=== PATIENT | female | born 1990 | race Caucasian/White ===

== ENCOUNTER 2025-09-13 10:00 | Observation (INO) | payer OTHER, SELFPAY ==
[2025-09-13 10:02] VITALS: BMI 35.5
[2025-09-13 10:19] VITALS: BP 156/90; PULSE 86; RESP 18; TEMP 37.2; O2SAT 100
--- NOTE | 2025-09-13 10:26 | XR_ITS ---
EXAMINATION: PA chest single view TECHNIQUE: Upright PA chest single view Date and time: September 13, 2025, 10:37 a.m., comparison April 24, 2024. INDICATIONS: Cardiac palpitations this morning. FINDINGS: Normal heart size The lungs are clear. The osseous structures are intact. IMPRESSION: No active disease
--- NOTE | 2025-09-13 10:26 | EKG_ITS ---
[facility] Test Date: 2025-09-13 Pat Name: SHERITA HESS Department: Room: - Gender: Female [employer] Author: : 1990 Requested By: Tanesha Welch Order Number: [id number] Reading MD: Tanesha Welch Measurements Intervals [place] Rate: 74 P: 23 IA: 128 QRS: 65 QRSD: 75 T: 30 QT: 355 QTc: 395 Interpretive Statements SINUS RHYTHM WITH OCCASIONAL SUPRAVENTRICULAR PREMATURE COMPLEXES MINIMAL ST DEPRESSION [0.025+ mV ST DEPRESSION] Compared to ECG 04/19/2024 17:22:36 ST (T wave) deviation now present Sinus tachycardia no longer present T-wave abnormality no longer present /store/S0/[id number].pdf
--- NOTE | 2025-09-13 10:29 | PD.EDRME ---
Rapid Medical Screening Exam E Arrival date/time: 09/13/25 10:00 This is a 35-year-old female that comes into the emergency room with complaints of palpitations. Patient reports that she has a history of myasthenia gravis. Patient states that she noticed after she took the PYRIDOSTIGMINE she starts to have palpitations. Patient states she has been on this medication for over 5 years. I have greeted and performed a focused initial assessment of this patient. Initial appropriate labs ordered at this time. A comprehensive ED assessment and evaluation of the patient and analysis of all test and completion of medical decision making process will be conducted by additional ED provider. Chief Complaint: Arrhythmia/Palpitations Time Seen by Provider: 09/13/25 10:09 Vital signs: Vital Signs Temperature 98.9 F 09/13/25 10:19 Pulse Rate 86 09/13/25 10:19 Respiratory Rate 18 09/13/25 10:19 Blood Pressure 156/90 H 09/13/25 10:19 Pulse Oximetry (%) 100 09/13/25 10:19 Oxygen Delivery Method Room Air 09/13/25 10:19 Exam: Alert and oriented, breathing even and unlabored Clinical Impression: Palpitations
[2025-09-13 11:02] LABS: Basophils # (Auto) 0.0 Thou/mm3 (0.0-0.2); Basophils % (Auto) 1 % (0-2.5); Eosinophils # (Auto) 0.1 Thou/mm3 (0.0-0.5); Eosinophils % (Auto) 2 % (0-10); Hematocrit 41.9 % (36.0-46.0); Hemoglobin 13.7 g/dL (12.0-16.0); Immature Granulocytes Auto 0.01 Thou/mm3 (0.00-0.00); Lymphocytes # (Auto) 0.8 Thou/mm3 (1.0-4.8); Lymphocytes % (Auto) 17 % (10-50); Mean Corpuscular HGB Conc 32.7 g/dl (31.0-37.0); Mean Corpuscular Hemoglobin 27.7 pg (25.0-35.0); Mean Corpuscular Volume 85 fL (80-100); Monocytes # (Auto) 0.3 Thou/mm3 (0.0-0.8); Monocytes % (Auto) 7 % (0-12); Neutrophils # (Auto) 3.7 Thou/mm3 (1.8-7.7); Neutrophils % (Auto) 74 % (37-80); Nucleated Red Blood Cell # 0.00 Thou/mm3 (0.00-0.00); Nucleated Red Blood Cell % 0 /100 WBC (0); Platelet Count 285 Thou/mm3 (140-440); RDW Standard Deviation 39.5 fL (36.4-46.3); Red Blood Count 4.95 Miln/mm3 (4.00-5.20); White Blood Count 5.0 Thou/mm3 (3.6-11.0)
[2025-09-13 11:36] LABS: B-Type Natriuretic Peptide 44 pg/mL (0-100)
[2025-09-13 11:37] LABS: Alanine Aminotransferase 18 U/L (10-49); Albumin, Serum 4.8 gm/dL (3.5-5.0); Albumin/Globulin Ratio 2.2 (1.2-2.2); Alkaline Phosphatase 83 U/L (46-116); Anion Gap 8 (7-16); Aspartate Amino Transferase 15 U/L (0-34); BUN/Creatinine Ratio 9 Ratio (12-20); Bilirubin,Total 0.3 mg/dL (0.3-1.2); Blood Urea Nitrogen 7 mg/dL (9-23); Calcium 9.4 mg/dL (8.3-10.6); Calcium (Corrected) 9.4 mg/dL (8.5-10.1); Carbon Dioxide 25.6 mMol/L (20.0-31.0); Chloride 109 mMol/L (98-107); Creatinine (Component) 0.8 mg/dL (0.6-1.3); Estimated Creatinine Clearance 117.0 mL/min (>60); Globulin 2.2 gm/dL (2.3-3.5); Glucose 119 mg/dL (74-106); Osmolality,Calculated 283 (275-295); Potassium 3.8 mMol/L (3.4-5.1); Sodium 143 mMol/L (136-145); Total Protein 7.0 gm/dL (5.7-8.2); Troponin I < 0.002 ng/mL (0.0-0.045); eGFR > 60 See Note
[2025-09-13 12:03] LABS: Collection Type, Urine Voided
[2025-09-13 12:27] LABS: Bilirubin,Urine Negative (Negative); Blood,Urine Negative (Negative); Clarity,Urine Clear (Clear/Hazy); Color,Urine Colorless (Lt Yel-Yel); Culture Indicated,Urine Not Indicated; Glucose, Urine Negative (Negative); Ketones,Urine Negative (Negative); Leukocyte Esterase,Urine Negative (Negative); Nitrite,Urine Negative (Negative); PH,Urine 7.0 (5.0-7.0); Protein,Urine Negative (Neg - Trace); RBC,Urine 1 /hpf (0-3); Specific Gravity,Urine 1.007 (1.001-1.035); Squamous Epithelial Cell,Urine 1 /hpf (0-5); Urobilinogen,Urine Negative mg/dL (0.0-1.0); WBC,Urine < 1 /hpf (0-5)
[2025-09-13 12:51] LABS: HCG Qualitative,Urine Negative
--- NOTE | 2025-09-13 15:00 | EDNOTE_ITS ---
ED Arrhythmia Palp. RME/HPI General Chief Complaint: Arrhythmia/Palpitations Stated Complaint: LIGHTHEADED, BLURRY VISION, SHAKY, PALPITATIONS Time Seen by Provider: 09/13/25 10:09 Arrival date/time: 09/13/25 10:00 RME / HPI RME / HPI narrative: 09/13/25 10:00 This is a 35-year-old female that comes into the emergency room with complaints of palpitations. Patient reports that she has a history of myasthenia gravis. Patient states that she noticed after she took the PYRIDOSTIGMINE she starts to have palpitations. Patient states she has been on this medication for over [address] COUGHLIN MAIN ED EVALUATION: 35-year-old female with a past medical history of myasthenia gravis presents to the Emergency Department accompanied by her for evaluation of recurrent episodes of dizziness, palpitations, abdominal cramping, and waves of hot sensations that began yesterday and recurred this morning. The patient reports she has the autoimmune condition of myasthenia gravis and takes azathioprine 50 mg 3x daily. Yesterday, about 30 minutes after taking her medication, she developed abdominal cramping, dizziness, palpitations, and sensations of heat spreading throughout her body. She states her heart rate was 150-160 yesterday and her blood pressure was also elevated; her vitals were checked by a nurse here at the hospital yesterday, the patient is a current worker. She did not seek medical attention yesterday but returned today after experiencing another similar episode 30 minutes after her morning dose. Each episode lasts approximately 1?2 hours, occurs in waves, and is associated with a feeling of lightheadedness or impending fainting. She denies numbness, tingling, or weakness. No vomiting. No chest pain. Follows with PCP Dr. Saez and neurologist Dr. Delatorre. Related Data Previous Rx's ?Medication ?Instructions ?Recorded azathioprine 50 mg tablet 50 mg PO BID #30 tabs Allergies Allergy/AdvReac Type Severity Reaction Status Date / Time ciprofloxacin Allergy Severe Swelling Verified 09/13/25 10:05 of Lip/Tongue/Throat Review of Systems Review of Systems Systems Reviewed: All systems reviewed, normal except as documented Past Medical History Past Medical History REPRODUCTIVE: Positive Previous Pregnancies ( X2) ENDOCRINE: Positive Endocrine Disorders and Hypothyroidism PSYCHO/SOCIAL: Positive Depression (TOOK MEDS PRIOR TO THIS ) OTHER HISTORY: Positive Hospitalization ( X2) Family History FAMILY HISTORY: Positive Family Cardiac Disorders (MATERNAL GRANDPARENTS) Social History SMOKING STATUS: Never smoker ED Exam Narrative Physical exam: GENERAL APPEARANCE: alert and oriented x 4, well-developed, well-nourished, no acute distress, appears anxious VITALS: All vitals were reviewed and the pulse ox is 100% on room air, which is normal according to my interpretation. HEENT: Normocephalic, atraumatic; pupils equal, round, reactive to light; EOMI; mucous membranes pink, moist; oropharynx clear NECK: Supple LUNGS: CTABL; no wheezes, no rales, no rhonchi HEART: Regular rate, regular rhythm; normal S1, S2; no murmurs ABDOMEN: non distended; normal BS; soft, no tenderness, no guarding, no rebound; no masses, no organomegaly, no hernia BACK: no CVA tenderness EXTREMITIES: atraumatic; no edema NEUROLOGIC: awake; alert and oriented x4; cranial nerves II-XII grossly intact; no focal sensory or motor deficits PSYCHIATRIC: Appears anxious, cooperative, appropriate mood and affect SKIN: warm, dry, normal color; no rashes Course Quality Measures none Orders Category Date Time Status EKG (ED ONLY) *Do not use* NOW Care 09/13/25 10:26 Completed EKG (ED Only) Stat Exams 09/13/25 10:26 Draft XR chest 1V Stat Exams 09/13/25 10:26 Completed BNP [B-Type Natriuretic Peptide] Stat Lab 09/13/25 10:51 Completed CBC Stat Lab 09/13/25 10:51 Completed Comprehensive Metabolic Panel Stat Lab 09/13/25 10:51 Completed HCG Qualitative,Urine Stat Lab 09/13/25 11:19 Completed Troponin I Stat Lab 09/13/25 10:51 Completed Urinalysis, C/S if Indicated Stat Lab 09/13/25 11:19 Completed Vital Signs Vital signs: Vital Signs Temperature 98.9 F 09/13/25 10:19 Pulse Rate 86 09/13/25 10:19 Respiratory Rate 18 09/13/25 10:19 Blood Pressure 156/90 H 09/13/25 10:19 Pulse Oximetry (%) 100 09/13/25 10:19 Oxygen Delivery Method Room Air 09/13/25 10:19 Arrhythmia/Palpitations MDM Narrative MDM Narrative:: I, Fiordaliza Florentin, am scribing for and in the presence of Dr. Coughlin. Patient data External records reviewed:: [facility] [place] previous records Clinical information provided by:: patient and spouse Social determinants that could affect healthcare access:: none Patient has the following chronic illnesses:: Myasthenia gravis and takes azathioprine 50 mg 3x daily followed by neurologist Dr. Delatorre. Follows with PCP Dr. Saez. How is presenting disease/condition affected by chronic disease/condition?: exacerbated by Evaluation data The following diagnostics were reviewed and interpreted by me:: lab results, radiology exam(s) and EKG tracing(s) (My interpretation: EKG performed at 1029 hours, sinus rhythm, rate 74, T wave inversion in V1, slight ST depression in lead 3) Lab and/or radiology exams considered but not ordered:: none Interpretation Summary: Procedure(s): XR chest 1V Accession Number(s): [id number] cc: Cecilio Farias MD; Tanesha Welch NP~ EXAMINATION: PA chest single view TECHNIQUE: Upright PA chest single view Date and time: September 13, 2025, 10:37 a.m., comparison April 24, 2024. INDICATIONS: Cardiac palpitations this morning. FINDINGS: Normal heart size The lungs are clear. The osseous structures are intact. IMPRESSION: No active disease Dictated By: Cecilio Farias MD Medications / Prescriptions Medications or Prescriptions considered but not ordered:: none Medication administrations:: see above if any Consultations Consultation(s) initiated? (list below): Yes Consultation #1 (Physician, Specialty, Details): Discussed test HPI, PMHx, lab, radiology results and/or management with Dr. Delatorre. Wants the patient admitted and will consult an admission to the hospitalist. Time: 15:08 Consultation #2 (Physician, Specialty, Details): Discussed test HPI, PMHx, lab, radiology results and/or management with resident working with the hospitalist. Will admit for further evaluation and management. Accepts patient for admission. Time: 15:36 Diagnosis Differential diagnosis arrhythmia/palpitations: palpitations, anxiety, supraventricular tachycardia and other (adverse reaction to azathioprine, autonomic dysregulation related to myasthenia gravis) Most likely diagnosis given after review of the tests above:: Palpitations Admission Indicated Admission indicated?: not indicated Admission Request Was there a request for admission?: Yes Admission Attestation Admission request attestation: Discussed case with [] from Hospitalist service regarding admission. Discussed patients ED course, exam findings, labs, and radiology results. The Hospitalist [agrees,declines] to accept the patient for admission. Disposition Plan Disposition Plan: Admit Discharge Plan Plan Patient Disposition: Admit Acute Care w/in Hospital Prescriptions/Referrals Prescriptions/Med Rec: No Action azathioprine 50 mg tablet 50 mg PO BID Qty: 30 0RF Rx Instructions: From 05/08/2024 patient will start azathioprine 50 mg 2 times a day daily Referrals: Mora Saez MD [Primary Care Provider, Family Practice] - In 1 week Problem List Clinical Impression: Palpitations Patient/Caregiver Discharge Instructions Print Language: Uzbek Stand Alone Forms: [facility] Award Info., Patient Portal Info Letter
[2025-09-13 15:29] VITALS: BP 156/87; PULSE 78; PULSE 79; RESP 16; TEMP 36.9; O2SAT 99
[2025-09-13 17:11] VITALS: BP 142/83; PULSE 86; RESP 20; TEMP 36.8; O2SAT 99
--- NOTE | 2025-09-13 17:48 | ESHP_ITS ---
<Statement entered by Leslie Teixeira MD - 09/14/25 11:44> Patient was seen and examined by me personally. I have directly supervised and reviewed documentation by the team resident and agree with its findings with any exceptions or additional findings as below. Plan of care was discussed with the attending, Dr. Hunt. Patient is a 35-year-old female with history of myasthenia gravis who presented to the ED on 09/13/2025 due to an episode of palpitations, diaphoresis, dizziness, and presyncopal symptoms about 30 minutes after taking her pyridostigmine dose this morning. Patient states that it self resolved before coming to the hospital however she had a similar reaction yesterday also after taking her medication, thus prompting concern for the repeat episode. Patient states the medication is not new and she has been taking it for 5 years now. Patient denies any caffeine intake today or yesterday morning. She does report a history of anxiety and panic attacks, and endorses that there could possibly be a component of the anxiety contributing. She noted that her heart rate was fast yesterday however when checking her health isauro on her phone did not see a record of tachycardia. On ED workup, vitals have been stable and EKG showed normal sinus rhythm. Labs showed a normal CMP, CBC, troponin, and BNP. Dr. Delatorre was consulted by the ED and requests patient to be admitted for observation and telemonitoring. Patient's home pyridostigmine will be resumed at half the regular dose. Anticipate discharge in 24 hours if remains stable. Leslie Teixeira, PGY-3 Documentation for date of: 09/13/25 HPI History of Present Illness History of present illness: Nga Duran is a 35-year-old female with a PMH of myasthenia gravis on pyridostigmine for 4-5 years and new-onset hypertension for the past 6 months who presents today with a chief complaint of recurrent episodes of palpitations. She reports that yesterday she felt dizzy and tachycardic after taking her usual dose of pyridostigmine and that this was accompanied by blurry vision and a feeling of heat that washed over her body that made her feel like she was going to faint. She endorses similar episodes of this in the past (minus the blurry vision) as well as recurrent episodes of palpitations that occur at night which awaken her and keep her from sleeping. Patient states that her concern regarding her paroxysmal stints of palpitations was mainly centered around fear that something life-threatening was about to befall her rather than any symptomatic discomfort associated with the episode itself. She endorses history of anxiety and expresses that she wants to get a handle on whatever these current symptoms are so that nothing catastrophic befalls her. At the time of interview, patient denied any ongoing symptoms for which she chose to seek care in the ED as they had self-resolved. Of note, patient did report that she had apparently been hospitalized about a month ago for a myasthenic crisis for which she was given IVIG. PMH: As above PSH: None Medications: PO pyridostigmine bromide 120 mg every 6 hours Allergies: Ciprofloxacin, and IV magnesium sulfate (causes respiratory failure) FH: History of rheumatoid arthritis and congestive heart failure in mother SH: No significant history of alcohol use, smoking, or recreational drug use In the ED, vitals showed: BP 156/90 HR 86 RR 18 Temp 98.9 SpO2 100% on room air CBC was WNL. CMP was WNL. UA was bland. Imagin/1 CXR was unremarkable. 09/13 EKG showed sinus rhythm of heart rate 74 with occasional supraventricular premature complexes and minimal ST depression. In the ED, patient was started on PO pyridostigmine bromide 30 mg every 6 hours. Patient was admitted to Observation for the work-up and management of recurrent and unexplained episodes of palpitations. Neurology (Dr. Delatorre) was consulted and is closely following the case. Review of Systems Review of Systems Systems Reviewed: All systems reviewed, normal except as documented Exam Vital Signs Temp Pulse Resp BP Pulse Ox O2 Del Method 98.2 F 86 20 142/83 H 99 Room Air 09/13/25 17:11 09/13/25 17:11 09/13/25 17:11 09/13/25 17:11 09/13/25 17:11 09/13/25 17:11 Narrative Exam General: A/O x3, no acute distress. Skin: Warm, dry, intact, no obvious rash. Head: Normocephalic, atraumatic. Eyes: PERRL, EOMI. Anicteric, vision grossly intact. Ears: No ear pain, no ear discharge, Hearing grossly intact. Nose: No nasal discharge. Mouth/Throat: Oral mucosa moist. No obvious lesions in oropharynx. Neck: Neck supple, non-tender, no cervical lymphadenopathy. Cardiovascular: Slightly tachycardic rate but normal rhythm, no murmur, no JVD or carotid bruits. +S1/S2. Respiratory: Bilateral lungs are clear to auscultation, respirations unlabored, no crackles, no wheezing. No accessory muscle use. Gastrointestinal: Soft, nontender, non-distended, no palpable masses. No guarding or rebound tenderness. Peristalsis present. Extremities: Symmetrical, no significant deformities. No edema, no cyanosis, no clubbing. 2+ radial pulse bilaterally, 2+ posterior tibial pulse bilaterally. Neuro: No focal deficits observed. Conversant, moving all extremities. No overt cerebellar signs/incoordination. Psychiatric: Cooperative, anxious affect. Results: Labs 09/13/25 10:51 09/13/25 10:51 Labs: Short CBC 09/13/25 Range/Units 10:51 WBC 5.0 (3.6-11.0) Thou/mm3 Hgb 13.7 (12.0-16.0) g/dL Hct 41.9 (36.0-46.0) % Plt Count 285 (140-440) Thou/mm3 BMP 09/13/25 10:51 Sodium 143 Potassium 3.8 Chloride 109 H Carbon Dioxide 25.6 BUN 7 L Creatinine 0.8 Glucose 119 H Calcium 9.4 Cardiac Enzymes 09/13/25 Range/Units 10:51 Troponin I < 0.002 (0.0-0.045) ng/mL Liver Function 09/13/25 Range/Units 10:51 Total Bilirubin 0.3 (0.3-1.2) mg/dL AST 15 (0-34) U/L ALT 18 (10-49) U/L Alkaline Phosphatase 83 (46-116) U/L Albumin 4.8 (3.5-5.0) gm/dL Urine 09/13/25 Range/Units 11:19 Urine Color Colorless A (Lt Yel-Yel) Urine Clarity Clear (Clear/Hazy) Urine pH 7.0 (5.0-7.0) Ur Specific [place] 1.007 (1.001-1.035) Urine Protein Negative (Neg - Trace) Urine Glucose (UA) Negative (Negative) Quality Measures Quality Measures none Medications Home Medications and Allergies Home Medications ?Medication ?Instructions ?Recorded ?Confirmed ?Type pyridostigmine bromide 60 mg tablet 120 mg PO Q6HR 12/0709/13/25 History Allergies Allergy/AdvReac Type Severity Reaction Status Date / Time ciprofloxacin Allergy Severe Swelling Verified 09/13/25 10:05 of Lip/Tongue/Throat Visit Medications Acetaminophen (Acetaminophen 325 Mg Tablet) 650 mg PO Q6H PRN PRN Reason: Fever >101.5 Stop: 10/13/25 17:16 Heparin Sodium (Porcine) (Heparin Sod Inj 5000 Unit/Ml Vial) 5,000 unit SC Q12HR ZOE Stop: 09/27/25 20:59 Ondansetron HCl (Ondansetron Inj 2 Mg/Ml Inj 2 Ml) 4 mg IVP Q6H PRN; Protocol PRN Reason: NAUSEA OR VOMITING Stop: 10/13/25 17:16 Assessment & Plan Plan Nga Duran is a 35-year-old female with a PMH of myasthenia gravis on pyridostigmine for 4-5 years and new-onset hypertension for the past 6 months who presents today with a chief complaint of recurrent episodes of palpitations. Patient was admitted to Observation for the work-up and management of recurrent and unexplained episodes of palpitations. 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 In the setting of self-reported history of anxiety, preoccupation with what her symptoms could be a harbinger of rather than actual experienced discomfort, completely negative labs, and the self-resolving nature of these episodes, currently suspect the etiology of the above is likely a manifestation of psychiatric origin such as panic attack, PTSD, or generalized anxiety disorder (possibly exacerbated by recent hospitalization a month ago for myasthenic crisis) Etiology is likely multifactorial with typical side-effects associated with pyridostigmine causing symptoms that trigger concern in the patient and procession of a negative thought spiral via catastrophic thinking DDx: adverse medication effect (common side effects of pyridostigmine include blurry vision, anxiety, and feelings of panic), vasovagal syncope, hyperthyroidism Dx: -09/13 TSH ordered, showed ___ Rx: -Continue to monitor for now -Neurology (Dr. Delatorre) has been consulted, appreciate recommendations #History of myasthenia gravis Patient reports past medical history of myasthenia gravis and recent hospitalization a month ago for myasthenic crisis requiring treatment with IVIG Has been on home PO pyridostigmine bromide 120 mg q6HR for 4-5 years which adequately controls her MG symptoms (and has showed good tolerance of it in that period) Rx: -PO pyridostigmine bromide 30 mg q6HR #Hypertension, new onset Admission BP was noted to be high at 156/90 which patient reports is a recent change in BP that has only been ongoing since the past 6 months Rx: -Continue to monitor for now Hospital Management: Disposition: Admitted to observation for concern of paroxysmal, episodic palpitations Diet: Regular GI Prophylaxis: Not Indicated Bowel Prophylaxis: None DVT Prophylaxis: SC Heparin 5K q12HR CODE STATUS: Full Code I have examined the patient and conferred with my attending, Dr. Hunt, and my senior resident, Dr. Teixeira, regarding them. Antelmo Cordero DO PGY-1 Internal Medicine Attending Provider Attestation/Addendum I have seen and examined the patient. I was physically present for the jesus portions of the services provided including history, physical exam, diagnosis, treatment plans and orders. I agree with assessment and plan of care as documented by residents. After examination of the patient and review of the clinical data I feel that this patient needs observation in the hospital for further treatment/evaluation. Patient is a 35 years old female with past medical history of myasthenia gravis who presented to the ED with complaint of episodes of palpitations, dizziness after taking her usual dose of pyridostigmine. She also felt like she would pass out. Patient had similar episode yesterday as well. She also has history of anxiety and panic attacks. Lab results and vital stables were stable at the ED. Examination findings were benign but appeared anxious. Discussed with neurology, recommended observation overnight and decrease the dose of palliative medicine to half while inpatient. We will admit the patient for observation for close monitoring of episode of panic attack versus presyncope versus arrhythmia. We will continue with pyridostigmine 30 mg every 6 hour, blood pressure noted to be slightly high, we will monitor closely. Even though this note was carefully revised there may still be minor errors in sewing pattern layout technician due to voice recognition software. Yasir Hunt MD
[2025-09-13 19:10] VITALS: PULSE 92
[2025-09-13 19:14] VITALS: BP 144/97; PULSE 82; RESP 22; O2SAT 98
--- NOTE | 2025-09-14 00:17 | PD.NEUROCONS ---
History of Present Illness Data of Consult Requesting Physician: Yasir Hunt MD Primary Care Provider: Mora Saez MD Consult Narrative cc:: cc: Yasir Hunt MD Review of Systems Review of Systems Systems Reviewed: All systems reviewed, normal except as documented Past Medical History Past Medical History REPRODUCTIVE: Positive Previous Pregnancies ( X2) ENDOCRINE: Positive Endocrine Disorders and Hypothyroidism PSYCHO/SOCIAL: Positive Depression (TOOK MEDS PRIOR TO THIS ) OTHER HISTORY: Positive Hospitalization ( X2) Family History FAMILY HISTORY: Positive Family Cardiac Disorders (MATERNAL GRANDPARENTS) Social History SMOKING STATUS: Never smoker Meds Home Medications and Allergies Home Medications ?Medication ?Instructions ?Recorded ?Confirmed ?Type pyridostigmine bromide 60 mg tablet 120 mg PO Q6HR 09/13/25 09/13/25 History Allergies Allergy/AdvReac Type Severity Reaction Status Date / Time ciprofloxacin Allergy Severe Swelling Verified 09/13/25 10:05 of Lip/Tongue/Throat Exam - Neurology Vital Signs Temp Pulse Resp BP Pulse Ox O2 Del Method 98.2 F 82 22 H 144/97 H 98 Room Air 09/13/25 17:11 09/13/25 19:14 09/13/25 19:14 09/13/25 19:14 09/13/25 19:14 09/13/25 19:14 Narrative Exam GENERAL APPEARANCE: Well hydrated, well-nourished in no acute distress. HEENT: Normocephalic, atraumatic, extraocular movements intact, pupils: Equal reacting to light and accommodation NECK: Supple, no JVD or bruits. CARDIOVASULAR: Heart: S1, S2 heard, regular without S3-S4 or murmur no rubs or gallops. LUNGS/CHEST: Clear to auscultation bilaterally. No rails, rhonchi, or wheezing. Normal inspection. ABDOMEN: Soft, nontender, with normal bowel sounds. No pulsatile masses. No rebound, rigidity, or guarding. Normal inspection and palpation. EXTREMITIES: Normal inspection and palpation. No edema, clubbing or cyanosis. SKIN: Warm and dry without rashes. Normal inspection. MUSCULOSKELETAL: No cervical, thoracic, lumbar or midline bony tenderness. Normal inspection. NEURO: Alert, awake and oriented x3. Cranial nerves: II through XII grossly intact. Speech and language: normal with no dysarthria and bulbar weakness. Motor system: Tone and bulk: Normal: Strength: 5 out of 5 in all 4 extremities; No pronator drift noted. Deep tendon reflexes: 2+ bilaterally symmetrical. Plantar reflex: Downgoing bilaterally. Sensory system: Intact to all modalities of sensation bilaterally. Coordination: Intact to gqlmze-fhce-mbmmwj and vkww-resp-apor test bilaterally. No ataxia, no dysmetria, or dysdiadochokinesia noted. No intention tremors noted. Gait: Normal. No signs of meningeal irritation noted. PSYCHIATRIC: Normal mood and affect. Results Labs 09/13/25 10:51 09/13/25 10:51 Labs: Short CBC 09/13/25 Range/Units 10:51 WBC 5.0 (3.6-11.0) Thou/mm3 Hgb 13.7 (12.0-16.0) g/dL Hct 41.9 (36.0-46.0) % Plt Count 285 (140-440) Thou/mm3 BMP 09/13/25 10:51 Sodium 143 Potassium 3.8 Chloride 109 H Carbon Dioxide 25.6 BUN 7 L Creatinine 0.8 Glucose 119 H Calcium 9.4 Cardiac Enzymes 09/13/25 Range/Units 10:51 Troponin I < 0.002 (0.0-0.045) ng/mL Liver Function 09/13/25 Range/Units 10:51 Total Bilirubin 0.3 (0.3-1.2) mg/dL AST 15 (0-34) U/L ALT 18 (10-49) U/L Alkaline Phosphatase 83 (46-116) U/L Albumin 4.8 (3.5-5.0) gm/dL Urine 09/13/25 Range/Units 11:19 Urine Color Colorless A (Lt Yel-Yel) Urine Clarity Clear (Clear/Hazy) Urine pH 7.0 (5.0-7.0) Ur Specific [place] 1.007 (1.001-1.035) Urine Protein Negative (Neg - Trace) Urine Glucose (UA) Negative (Negative) Assessment & Plan Assessment and plan (1) Palpitations: Status: Acute Assessment and plan: Most likely secondary to panic attack associated with generalized anxiety disorder. Reassurance given Keep her under observation for 23 hours and then discharge her (2) Myasthenia gravis: Status: Chronic Assessment and plan: Continue with the Mestinon but lowered the dose to 30 mg every 6 hours
--- NOTE | 2025-09-14 07:08 | ESDS_ITS ---
<Statement entered by Sundar Stern MD - 09/14/25 13:52> I have personally seen and examined the patient, agree with residents assessment and plan Patient plan of care was discussed with the attending physician, Dr. Gilbert Stern, PGY2 Planned Discharge Date 09/14/25 DS: Providers Provider Date of admission: 09/13/25 17:17 Primary care physician: Mora Saez MD Admitting Provider: Yasir Hunt MD Attending Provider on Admission: Yasir Hunt MD Attending Provider on DC: Yasir Hunt MD Discharging Provider: Antelmo Cordero DO DS: Diagnosis Problem List Completed Was Problem List Reviewed/Reconciled?: Yes Hospital Course Hospital Course Hospital course: Summary: Nga Duran is a 35-year-old female with a PMH of myasthenia gravis on pyridostigmine for 4-5 years and new-onset hypertension for the past 6 months who presents today with a chief complaint of recurrent episodes of palpitations. Patient was admitted to Observation for the work-up and management of recurrent and unexplained episodes of palpitations. Hospital: During patient's hospital course, she was restarted on her home PO pyridostigmine bromide but at a reduced dose for her history of myasthenia gravis. Other than the above, she did not receive any further medical management and was simply observed for her concern for episodes of palpitation. Sometime during the night of 09/13, patient decided to leave AMA. Patient left AMA in the evening of 09/13/25. Further discharge instructions below. Patient may return to the [facility] ED to seek care at any point should she feel the need for it. #Paroxysmal, episodic palpitations #Blurry vision, resolved #Presyncope #History of anxiety #??Panic attack #History of myasthenia gravis #Hypertension, new onset Status at Discharge Cognitive/Behavioral Status at Discharge: stable Functional Status at Discharge: independent ambulation Overall Status at Discharge: patient is back to baseline Patient's care plan was discussed with my attending, Dr. Hunt, and senior resident, Dr. Stern. Antelmo Cordero DO Internal Medicine, PGY-1 Time Spent with Patient Time attestation: Total time spent providing and/or coordinating discharge services: Time spent: Greater than 30 minutes Exam Vital Signs Temp Pulse Resp BP Pulse Ox O2 Del Method 98.2 F 82 22 H 144/97 H 98 Room Air 09/13/25 17:11 09/13/25 19:14 09/13/25 19:14 09/13/25 19:14 09/13/25 19:14 09/13/25 19:14 Narrative Exam General: A/O x3, no acute distress. Skin: Warm, dry, intact, no obvious rash. Head: Normocephalic, atraumatic. Eyes: PERRL, EOMI. Anicteric, vision grossly intact. Ears: No ear pain, no ear discharge, Hearing grossly intact. Nose: No nasal discharge. Mouth/Throat: Oral mucosa moist. No obvious lesions in oropharynx. Neck: Neck supple, non-tender, no cervical lymphadenopathy. Cardiovascular: Slightly tachycardic rate but normal rhythm, no murmur, no JVD or carotid bruits. +S1/S2. Respiratory: Bilateral lungs are clear to auscultation, respirations unlabored, no crackles, no wheezing. No accessory muscle use. Gastrointestinal: Soft, nontender, non-distended, no palpable masses. No guarding or rebound tenderness. Peristalsis present. Extremities: Symmetrical, no significant deformities. No edema, no cyanosis, no clubbing. 2+ radial pulse bilaterally, 2+ posterior tibial pulse bilaterally. Neuro: No focal deficits observed. Conversant, moving all extremities. No overt cerebellar signs/incoordination. Psychiatric: Cooperative, anxious affect. Discharge Plan Problem List Was Problem List Reviewed/Reconciled?: Yes Plan Patient Disposition: Left Against Medical Advice Prescriptions/Referrals Prescriptions/Med Rec: No Action azathioprine 50 mg tablet 50 mg PO BID Qty: 30 0RF Rx Instructions: From 05/08/2024 patient will start azathioprine 50 mg 2 times a day daily pyridostigmine bromide 60 mg tablet 120 mg PO Q6HR Patient Comments: TAKE 2 TABLET (60 MG) BY ORAL ROUTE 4 TIMES PER DAY Referrals: Mora Saez MD [Primary Care Provider, Family Practice] Patient/Caregiver Discharge Instructions Print Language: [place] Quality Discharge Quality Measures VTE prophylaxis MD Attestestation MD Attestation Patient left AMA overnight, unable to see this morning. I agree with assessment and plan of care as documented by residents. Even though this this note was carefully revised there may still be minor errors in global mobility specialist due to voice recognition software. Yasir Hunt MD
--- NOTE | 2025-09-15 07:15 | PD.RESEVENT ---
Documentation for date of: 09/15/25 Event Note Event Note: Event: AMA Nurse called from ED stating that patient requesting to leave AMA. I went to evaluate. Patient was stable, saying symptoms had resolved and felt like she was back at her baseline. Denied any further chest pain, palpitations, dizziness. Patient expressed desire to leave AMA. Risk and benefits of leaving were discussed including potential for recurrent symptoms of palpitations, syncope, arrhythmia, or even . The patient verbalized understanding and continued to request discharge. She was AOx3, signed AMA form. I advised patient to return to ED if symptoms recur. Patient left AMA on 09/14.
== END 2025-09-13 21:38 | disposition left against medical advice (07) ==
LOC: SERX 15:37 → SERHOLD 17:53
PROVIDERS: Nurse Practitioner Family; Admitting Provider Student in an Organized Health Care Education/Training Program; Emergency Provider Emergency Medicine; PCP Family Medicine; Visit Provider Student in an Organized Health Care Education/Training Program
DX: R00.2 Palpitations (principal); I10 Essential (primary) hypertension; G70.00 Myasthenia gravis without (acute) exacerbation; R55 Syncope and collapse; F41.9 Anxiety disorder, unspecified; Z53.29 Procedure and treatment not carried out because of patient's decision for other reasons
CPT/HCPCS: 36415; 71045; 80053; 80061; 81001; 81025; 83735; 83880; 84100; 84443; 84484; 85025; 93005; 99283; G0378; A9270